=== PATIENT | female | born 1975 | race African-American/Black ===

== ENCOUNTER 2017-02-20 14:46 | Inpatient (IN) | payer OTHER ==
[2017-02-20] MEDS ORDERED: P-EPHED 60MG/TRIPROLIDI 2.5MG TABLET PO PRN (16:56)
[2017-02-20] MEDS ORDERED: MENTHOL/PHENOL 1 EACH UD MM PRN (16:56)
[2017-02-20] MEDS ORDERED: LOPERAMIDE HCL 2 MG CAPSULE PO PRN (16:56)
[2017-02-20] MEDS ORDERED: IBUPROFEN 400 MG TABLET (FP) PO PRN (16:56)
[2017-02-20] MEDS ORDERED: MAGNESIUM CITRATE 300 ML BOTTLE PO PRN (16:56)
[2017-02-20] MEDS ORDERED: ACETAMINOPHEN 325 MG TABLET (FP) PO PRN (16:56)
[2017-02-20] MEDS ORDERED: MAG HYDROX/AL HYDROX/SIMETH 30 ML UNIT-DOSE CUP PO PRN (16:56)
[2017-02-20] MEDS ORDERED: MAGNESIUM HYDROX 2400MG/30ML ORAL SUSPENSION 30 ML CUP PO PRN (16:56)
[2017-02-20] MEDS ORDERED: guaiFENesin/D-METHORPHAN HB 10 ML UNIT-DOSE CUPS PO PRN (16:56)
[2017-02-20] MEDS ORDERED: hydrOXYzine PAMOATE 50 MG CAPSULE (FP) PO PRN (16:56)
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
[2017-02-20 17:01] VITALS: BMI 19.7
[2017-02-20] MEDS ORDERED: METHADONE HCL 10 MG TABLET (FOR DETOX USE ONLY) PO ONE ×2 (18:00→23:00)
[2017-02-20] MEDS ORDERED: chlordiazePOXIDE HCL 25 MG CAPSULE PO ONE (18:00)
[2017-02-20] MEDS: NICOTINE 21 MG/24 HOURS TOPICAL PATCH TD SCH (18:05)
[2017-02-20] MEDS: BACITRACIN 0.9 GM PACKET TP SCH (19:29)
[2017-02-20] MEDS: chlordiazePOXIDE HCL 25 MG CAPSULE PO PRN (19:34)
[2017-02-20] MEDS: cloNIDine HCL 0.1 MG TABLET PO SCH (22:15)
[2017-02-20] MEDS: THIAMINE HCL 100 MG TABLET (FP) PO SCH (22:15)
[2017-02-20] MEDS: chlordiazePOXIDE HCL 25 MG CAPSULE PO SCH (22:16)
[2017-02-20] MEDS: diphenhydrAMINE HCL 50 MG CAPSULE PO PRN (23:55)
[2017-02-21] MEDS: chlordiazePOXIDE HCL 25 MG CAPSULE PO PRN (03:10)
[2017-02-21] MEDS: chlordiazePOXIDE HCL 25 MG CAPSULE PO SCH ×4 (05:29→22:25)
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
[2017-02-21] MEDS ORDERED: CYCLOBENZAPRINE HCL 10 MG TABLET (FP) PO PRN (09:33)
[2017-02-21] MEDS ORDERED: CYCLOBENZAPRINE HCL 10 MG TABLET (FP) PO ONE (09:47)
[2017-02-21] MEDS ORDERED: METHADONE HCL 10 MG TABLET (FOR DETOX USE ONLY) PO SCH (10:00)
[2017-02-21] MEDS: ESCITALOPRAM OXALATE 20 MG TABLET (FP) PO SCH (10:03)
[2017-02-21] MEDS: PRENATAL VITAMINS W/ FOLIC ACID TABLET (FP) PO SCH (10:03)
[2017-02-21] MEDS: BACITRACIN 0.9 GM PACKET TP SCH (10:03)
[2017-02-21] MEDS: cloNIDine HCL 0.1 MG TABLET PO SCH ×2 (10:03→22:25)
[2017-02-21 10:10] LABS: MCH 21.3 pg (25.7-33.7); MCHC 30.6 g/dl (32.0-36.0); MEAN CELL VOLUME 69.4 fl (80-96); MEAN PLT VOLUME 9.9 fl (7.5-11.1); PLATELET COUNT 294 K/MM3 (134-434); RDW 19.9 % (11.6-15.6); WHITE BLOOD COUNT 11.5 K/mm3 (4.0-10.0)
[2017-02-21] MEDS: NICOTINE 21 MG/24 HOURS TOPICAL PATCH TD SCH (10:21)
[2017-02-21 10:33] LABS: ALBUMIN 3.6 g/dl (3.4-5.0); ALK PHOS 89 U/L (45-117); ANION GAP 8 (8-16); BILIRUBIN,TOTAL 0.4 mg/dL (0.2-1.0); CALCIUM 9.4 mg/dL (8.5-10.1); CO2 26 mmol/L (21-32); CREATININE 0.7 mg/dL (0.55-1.02); GLUCOSE,RANDOM 98 mg/dL (74-106); SGOT/AST 21 U/L (15-37); SGPT/ALT 26 U/L (12-78); TOT PROT 8.6 g/dl (6.4-8.2)
--- NOTE | 2017-02-21 10:34 | EKG ---
Test Reason : Blood Pressure : / mmHG Vent. Rate : 071 BPM Atrial Rate : 071 BPM P-R Int : 158 ms QRS Dur : 074 ms QT Int : 416 ms P-R-T Axes : 066 066 044 degrees QTc Int : 452 ms SINUS RHYTHM WITH MARKED SINUS ARRHYTHMIA OTHERWISE NORMAL ECG NO PREVIOUS ECGS AVAILABLE Confirmed by ARACELIS GRANT MD ([id number]) on 02/21/2017 10:34:21 AM Referred By: Confirmed By:ARACELIS GRANT MD
--- NOTE | 2017-02-21 10:40 | PN ---
S CIWA - CIWA Score Nausea/Vomitin Muscle Tremors: 3 Anxiety: 3 Agitation: 3 Paroxysmal Sweats: 2 Orientation: 0-Oriented Tacttile Disturbances: 1-Very Mild Itch/Numbness Auditory Disturbances: 1-Very Mild Visual Disturbances: 1-Very Mild Sensitivity Headache: 2-Mild CIWA-Ar Total Score: 19 BHS COWS - Scale Resting Pulse: 1= [place] 81-100 Sweatin= Chills/Flushing Restless Observation: 3= Extraneous Movement Pupil Size: 1= Pupils >than Normal Bone or Joint Aches: 2= Severe Diffuse Aches Runny Nose/ Eye Tearin= Runny Nose/Eyes GI Upset > 30mins: 3= Vomiting/Diarrhea Tremor Observation of Outstretched Hands: 2= Slight Tremor Visible Yawning Observation: 1= 1-2x During Session Anxiety or Irritability: 2=Irritable/Anxious Goose Flesh Skin: 0=Smooth Skin COWS Score: 18 S Progress Note (SOAP) Subjective: alert,irritable,anxious,interrupted sleep,tremor,pain in the body and back, Objective: 02/21/17 10:43 Vital Signs Temperature 97.7 F 02/21/17 09:27 Pulse Rate 94 H 02/21/17 09:27 Respiratory Rate 20 02/21/17 09:27 Blood Pressure 139/92 02/21/17 09:27 O2 Sat by Pulse Oximetry (%) ekg nsr with sinus arrhythmia no chest pain,no sob,no dizziness 02/21/17 10:44 Laboratory Last Values WBC 11.5 K/mm3 (4.0-10.0) H 02/21/17 07:00 RBC 5.62 M/mm3 (3.60-5.2) H 02/21/17 07:00 Hgb 12.0 GM/dL (10.7-15.3) 02/21/17 07:00 Hct 39.0 % (32.4-45.2) 02/21/17 07:00 MCV 69.4 fl (80-96) L 02/21/17 07:00 MCH 21.3 pg (25.7-33.7) L 02/21/17 07:00 MCHC 30.6 g/dl (32.0-36.0) L 02/21/17 07:00 RDW 19.9 % (11.6-15.6) H 02/21/17 07:00 Plt Count 294 K/MM3 (134-434) 02/21/17 07:00 MPV 9.9 fl (7.5-11.1) 02/21/17 07:00 Sodium 138 mmol/L (136-145) 02/21/17 07:00 Potassium 3.6 mmol/L (3.5-5.1) 02/21/17 07:00 Chloride 104 mmol/L (98-107) 02/21/17 07:00 Carbon Dioxide 26 mmol/L (21-32) 02/21/17 07:00 Anion Gap 8 (8-16) 02/21/17 07:00 BUN 9 mg/dL (7-18) 02/21/17 07:00 Creatinine 0.7 mg/dL (0.55-1.02) 02/21/17 07:00 Creat Clearance w eGFR > 60 (>60) 02/21/17 07:00 Random Glucose 98 mg/dL (74-106) 02/21/17 07:00 Calcium 9.4 mg/dL (8.5-10.1) 02/21/17 07:00 Total Bilirubin 0.4 mg/dL (0.2-1.0) 02/21/17 07:00 AST 21 U/L (15-37) 02/21/17 07:00 ALT 26 U/L (12-78) 02/21/17 07:00 Alkaline Phosphatase 89 U/L (45-117) 02/21/17 07:00 Total Protein 8.6 g/dl (6.4-8.2) H 02/21/17 07:00 Albumin 3.6 g/dl (3.4-5.0) 02/21/17 07:00 02/21/17 10:45 labs pending Assessment: 02/21/17 10:45 withdrawal symptom Plan: continue detox,encourage oral fluid
[2017-02-21 11:06] LABS: ANISOCYTOSIS 1+; HYPOCHROMIA 1+; MICROCYTOSIS 1+; PLATELET ESTIMATE ADEQUATE (NORMAL); SICKLE CELL SCREEN NEGATIVE (NEGATIVE); TARGET CELLS FEW
[2017-02-21 12:20] LABS: HIV 1 & 2 AB NEGATIVE; HIV 1 AGp24 NEGATIVE
[2017-02-21] MEDS: THIAMINE HCL 100 MG TABLET (FP) PO SCH (22:25)
[2017-02-21] MEDS: QUEtiapine FUMARATE 300 MG TABLET PO SCH (22:25)
[2017-02-21] MEDS: diphenhydrAMINE HCL 50 MG CAPSULE PO PRN (22:26)
[2017-02-22] MEDS: chlordiazePOXIDE HCL 25 MG CAPSULE PO PRN (02:33)
[2017-02-22] MEDS: chlordiazePOXIDE HCL 25 MG CAPSULE PO SCH ×2 (06:24→10:05)
[2017-02-22] MEDS: METHADONE HCL 5 MG TABLET (FOR DETOX USE ONLY) PO SCH (10:05)
[2017-02-22] MEDS: ESCITALOPRAM OXALATE 20 MG TABLET (FP) PO SCH (10:05)
[2017-02-22] MEDS: BACITRACIN 0.9 GM PACKET TP SCH (10:05)
[2017-02-22] MEDS: cloNIDine HCL 0.1 MG TABLET PO SCH ×2 (10:05→23:53)
[2017-02-22] MEDS: PRENATAL VITAMINS W/ FOLIC ACID TABLET (FP) PO SCH (10:05)
[2017-02-22] MEDS: NICOTINE 21 MG/24 HOURS TOPICAL PATCH TD SCH (10:06)
[2017-02-22] MEDS ORDERED: IBUPROFEN 400 MG TABLET (FP) PO PRN (10:23)
--- NOTE | 2017-02-22 10:30 | PN ---
S CIWA - CIWA Score Nausea/Vomitin Muscle Tremors: 3 Anxiety: 3 Agitation: 3 Paroxysmal Sweats: 1-Minimal Palms Moist Orientation: 0-Oriented Tacttile Disturbances: 1-Very Mild Itch/Numbness Auditory Disturbances: 1-Very Mild Visual Disturbances: 1-Very Mild Sensitivity Headache: 2-Mild CIWA-Ar Total Score: 18 BHS COWS - Scale Resting Pulse: 1= [place] 81-100 Sweatin= Chills/Flushing Restless Observation: 3= Extraneous Movement Pupil Size: 1= Pupils >than Normal Bone or Joint Aches: 2= Severe Diffuse Aches Runny Nose/ Eye Tearin= Runny Nose/Eyes GI Upset > 30mins: 2= Nausea/Diarrhea Tremor Observation of Outstretched Hands: 2= Slight Tremor Visible Yawning Observation: 1= 1-2x During Session Anxiety or Irritability: 2=Irritable/Anxious Goose Flesh Skin: 0=Smooth Skin COWS Score: 17 S Progress Note (SOAP) Subjective: alert,irritable,anxious,pain in the body,joint,interrupted sleep Objective: 02/22/17 12:12 Vital Signs Temperature 97.0 F L 02/22/17 09:43 Pulse Rate 90 02/22/17 09:43 Respiratory Rate 16 02/22/17 09:43 Blood Pressure 102/65 02/22/17 09:43 O2 Sat by Pulse Oximetry (%) Assessment: 02/22/17 12:12 withdrawal symptom Laboratory Last Values WBC 11.5 K/mm3 (4.0-10.0) H 02/21/17 07:00 RBC 5.62 M/mm3 (3.60-5.2) H 02/21/17 07:00 Hgb 12.0 GM/dL (10.7-15.3) 02/21/17 07:00 Hct 39.0 % (32.4-45.2) 02/21/17 07:00 MCV 69.4 fl (80-96) L 02/21/17 07:00 MCH 21.3 pg (25.7-33.7) L 02/21/17 07:00 MCHC 30.6 g/dl (32.0-36.0) L 02/21/17 07:00 RDW 19.9 % (11.6-15.6) H 02/21/17 07:00 Plt Count 294 K/MM3 (134-434) 02/21/17 07:00 MPV 9.9 fl (7.5-11.1) 02/21/17 07:00 Hypochromia 1+ 02/21/17 07:00 Platelet Estimate Adequate (NORMAL) 02/21/17 07:00 Platelet Comment No clumping noted 02/21/17 07:00 Anisocytosis 1+ 02/21/17 07:00 Microcytosis 1+ 02/21/17 07:00 Target Cells Few 02/21/17 07:00 Sickle Cell Screen Negative (NEGATIVE) 02/21/17 07:00 Sodium 138 mmol/L (136-145) 02/21/17 07:00 Potassium 3.6 mmol/L (3.5-5.1) 02/21/17 07:00 Chloride 104 mmol/L (98-107) 02/21/17 07:00 Carbon Dioxide 26 mmol/L (21-32) 02/21/17 07:00 Anion Gap 8 (8-16) 02/21/17 07:00 BUN 9 mg/dL (7-18) 02/21/17 07:00 Creatinine 0.7 mg/dL (0.55-1.02) 02/21/17 07:00 Creat Clearance w eGFR > 60 (>60) 02/21/17 07:00 Random Glucose 98 mg/dL (74-106) 02/21/17 07:00 Calcium 9.4 mg/dL (8.5-10.1) 02/21/17 07:00 Total Bilirubin 0.4 mg/dL (0.2-1.0) 02/21/17 07:00 AST 21 U/L (15-37) 02/21/17 07:00 ALT 26 U/L (12-78) 02/21/17 07:00 Alkaline Phosphatase 89 U/L (45-117) 02/21/17 07:00 Total Protein 8.6 g/dl (6.4-8.2) H 02/21/17 07:00 Albumin 3.6 g/dl (3.4-5.0) 02/21/17 07:00 RPR Titer Nonreactive (NONREACTIVE) 02/21/17 07:00 Hepatitis C Antibody <0.1 s/co ratio (0.0-0.9) 02/20/17 07:00 HIV 1&2 Antibody Screen Negative 02/21/17 07:00 HIV P24 Antigen Negative 02/21/17 07:00 Plan: continue detox,regimen changed to methadone and valium instead of methadone and librium
[2017-02-22] MEDS ORDERED: diazePAM 5 MG TABLET PO ONE (10:37)
[2017-02-22] MEDS: diazePAM 5 MG TABLET PO SCH ×2 (15:11→23:55)
[2017-02-22] MEDS: diazePAM 5 MG TABLET PO PRN (16:36)
[2017-02-22] MEDS ORDERED: chlordiazePOXIDE 5 MG CAPSULE PO SCH (23:00)
[2017-02-22] MEDS: QUEtiapine FUMARATE 300 MG TABLET PO SCH (23:55)
[2017-02-22] MEDS: THIAMINE HCL 100 MG TABLET (FP) PO SCH (23:55)
[2017-02-23] MEDS: diazePAM 5 MG TABLET PO PRN ×3 (01:03→20:03)
[2017-02-23] MEDS: diazePAM 5 MG TABLET PO SCH ×3 (05:12→22:12)
[2017-02-23] MEDS: NICOTINE POLACRILEX 4 MG GUM BC PRN ×3 (06:11→20:53)
[2017-02-23] MEDS ORDERED: ONDANSETRON *ODT* 4 MG TABLET SL PRN (08:31)
--- NOTE | 2017-02-23 08:35 | PN ---
BHS Progress Note (SOAP) Subjective: patient is c/o withdrawal sx, bodyaches, sweats, vomiting anxiety, tremors, heqadache Objective: 02/23/17 08:34 Vital Signs - 24 hr 02/22/17 02/22/17 02/22/17 09:43 16:59 21:19 Temperature 97.0 F L 98.6 F 97.9 F Pulse Rate 90 69 80 Respiratory 16 16 20 Rate Blood Pressure 102/65 92/67 100/60 02/23/17 02/23/17 02/23/17 00:30 03:30 06:26 Temperature 96.6 F L Pulse Rate 62 Respiratory 18 18 16 Rate Blood Pressure 102/56 Laboratory Tests 02/20/17 02/21/17 02/21/17 07:00 07:00 07:00 WBC 11.5 H RBC 5.62 H Hgb 12.0 Hct 39.0 MCV 69.4 L MCH 21.3 L MCHC 30.6 L RDW 19.9 H Plt Count 294 MPV 9.9 Hypochromia 1+ Platelet Estimate Adequate Platelet Comment No clumping noted Anisocytosis 1+ Microcytosis 1+ Target Cells Few Sickle Cell Screen Negative Sodium Potassium Chloride Carbon Dioxide Anion Gap BUN Creatinine Creat Clearance w eGFR Random Glucose Calcium Total Bilirubin AST ALT Alkaline Phosphatase Total Protein Albumin RPR Titer Hepatitis C Antibody <0.1 HIV 1&2 Antibody Screen Negative HIV P24 Antigen Negative 02/21/17 02/21/17 07:00 07:00 WBC RBC Hgb Hct MCV MCH MCHC RDW Plt Count MPV Hypochromia Platelet Estimate Platelet Comment Anisocytosis Microcytosis Target Cells Sickle Cell Screen Sodium 138 Potassium 3.6 Chloride 104 Carbon Dioxide 26 Anion Gap 8 BUN 9 Creatinine 0.7 Creat Clearance w eGFR > 60 Random Glucose 98 Calcium 9.4 Total Bilirubin 0.4 AST 21 ALT 26 Alkaline Phosphatase 89 Total Protein 8.6 H Albumin 3.6 RPR Titer Nonreactive Hepatitis C Antibody HIV 1&2 Antibody Screen HIV P24 Antigen Assessment: 02/23/17 08:34 withdrawal sx, microsytosis Plan: cont detox, ensure , iron supplements, encourage ambulation, fluids
[2017-02-23] MEDS ORDERED: ONDANSETRON *ODT* 4 MG TABLET SL ONE (08:40)
[2017-02-23] MEDS: ESCITALOPRAM OXALATE 20 MG TABLET (FP) PO SCH (10:07)
[2017-02-23] MEDS: NAPROXEN 500 MG TABLET (FP) PO SCH ×2 (10:07→22:08)
[2017-02-23] MEDS: METHADONE HCL 5 MG TABLET (FOR DETOX USE ONLY) PO SCH (10:08)
[2017-02-23] MEDS: PANTOPRAZOLE 40 MG TABLET (FP) PO SCH (10:08)
[2017-02-23] MEDS: BACITRACIN 0.9 GM PACKET TP SCH (10:08)
[2017-02-23] MEDS: PRENATAL VITAMINS W/ FOLIC ACID TABLET (FP) PO SCH (10:08)
[2017-02-23] MEDS: NICOTINE 21 MG/24 HOURS TOPICAL PATCH TD SCH (10:09)
[2017-02-23] MEDS: cloNIDine HCL 0.1 MG TABLET PO SCH ×2 (10:12→23:35)
[2017-02-23] MEDS: GABAPENTIN 100 MG CAPSULE (FP) PO SCH ×2 (14:37→22:08)
[2017-02-23] MEDS: hydrOXYzine PAMOATE 50 MG CAPSULE (FP) PO SCH ×2 (14:38→23:35)
[2017-02-23 17:00] LABS: URINE APPEARANCE CLEAR; URINE BILIRUBIN NEGATIVE (NEGATIVE); URINE BLOOD NEGATIVE (NEGATIVE); URINE COLOR LT. YELLOW; URINE GLUCOSE (UA) NEGATIVE (NEGATIVE); URINE KETONE NEGATIVE (NEGATIVE); URINE LEUK ESTERASE NEGATIVE (NEGATIVE); URINE NITRITE NEGATIVE (NEGATIVE); URINE PROTEIN NEGATIVE (NEGATIVE); URINE UROBILINOGEN 0.2 mg/dL (0.2-1.0)
[2017-02-23] MEDS ORDERED: ZOLPIDEM TARTRATE 10 MG TABLET (PARK CARE ONLY) PO PRN (22:00)
[2017-02-23] MEDS: THIAMINE HCL 100 MG TABLET (FP) PO SCH (22:08)
[2017-02-23] MEDS: QUEtiapine FUMARATE 300 MG TABLET PO SCH (22:09)
[2017-02-23] MEDS ORDERED: chlordiazePOXIDE HCL 10 MG CAPSULE PO SCH (23:00)
[2017-02-24] MEDS: diazePAM 5 MG TABLET PO PRN ×3 (01:08→18:33)
[2017-02-24] MEDS: hydrOXYzine PAMOATE 50 MG CAPSULE (FP) PO SCH ×3 (07:28→22:10)
[2017-02-24] MEDS: GABAPENTIN 100 MG CAPSULE (FP) PO SCH ×3 (07:28→22:10)
[2017-02-24] MEDS ORDERED: METHADONE HCL 10 MG TABLET (FOR DETOX USE ONLY) PO SCH (10:00)
[2017-02-24] MEDS: PRENATAL VITAMINS W/ FOLIC ACID TABLET (FP) PO SCH (10:45)
[2017-02-24] MEDS: NAPROXEN 500 MG TABLET (FP) PO SCH ×2 (10:45→22:11)
[2017-02-24] MEDS: ESCITALOPRAM OXALATE 20 MG TABLET (FP) PO SCH (10:45)
[2017-02-24] MEDS: PANTOPRAZOLE 40 MG TABLET (FP) PO SCH (10:45)
[2017-02-24] MEDS: NICOTINE 21 MG/24 HOURS TOPICAL PATCH TD SCH (10:45)
[2017-02-24] MEDS: diazePAM 5 MG TABLET PO SCH ×2 (10:46→22:10)
[2017-02-24] MEDS: cloNIDine HCL 0.1 MG TABLET PO SCH ×2 (10:47→22:10)
[2017-02-24] MEDS: BACITRACIN 0.9 GM PACKET TP SCH (10:47)
--- NOTE | 2017-02-24 12:09 | PN ---
BHS Progress Note (SOAP) Subjective: alert,irritable,anxious,interrupted sleep,pain in the body Objective: 02/24/17 12:08 Vital Signs Temperature 97.5 F L 02/24/17 10:53 Pulse Rate 75 02/24/17 10:53 Respiratory Rate 16 02/24/17 10:53 Blood Pressure 111/65 02/24/17 10:53 O2 Sat by Pulse Oximetry (%) Assessment: 02/24/17 12:09 withdrawal symptom Plan: continue detox
[2017-02-24] MEDS: QUEtiapine FUMARATE 300 MG TABLET PO SCH (22:10)
[2017-02-24] MEDS: THIAMINE HCL 100 MG TABLET (FP) PO SCH (22:10)
[2017-02-25] MEDS ORDERED: METHADONE HCL 5 MG TABLET (FOR DETOX USE ONLY) PO SCH (06:00)
[2017-02-25] MEDS: hydrOXYzine PAMOATE 50 MG CAPSULE (FP) PO SCH ×3 (06:29→22:08)
[2017-02-25] MEDS: GABAPENTIN 100 MG CAPSULE (FP) PO SCH ×3 (06:30→22:08)
--- NOTE | 2017-02-25 08:37 | PN ---
S Progress Note (SOAP) Subjective: ALERT,IRRITABLE,ANXIOUS,INTERRUPTED SLEEP Objective: 02/25/17 08:36 Vital Signs Temperature 97.3 F L 02/25/17 06:00 Pulse Rate 74 02/25/17 06:00 Respiratory Rate 18 02/25/17 06:00 Blood Pressure 107/61 02/25/17 06:00 O2 Sat by Pulse Oximetry (%) Assessment: 02/25/17 08:36 WITHDRAWAL SYMPTOM Plan: CONTINUE DETOX
[2017-02-25] MEDS: BACITRACIN 0.9 GM PACKET TP SCH (10:08)
[2017-02-25] MEDS: cloNIDine HCL 0.1 MG TABLET PO SCH ×2 (10:08→22:08)
[2017-02-25] MEDS: ESCITALOPRAM OXALATE 20 MG TABLET (FP) PO SCH (10:09)
[2017-02-25] MEDS: diazePAM 5 MG TABLET PO SCH ×2 (10:09→22:08)
[2017-02-25] MEDS: PANTOPRAZOLE 40 MG TABLET (FP) PO SCH (10:09)
[2017-02-25] MEDS: NAPROXEN 500 MG TABLET (FP) PO SCH ×2 (10:09→22:08)
[2017-02-25] MEDS: NICOTINE 21 MG/24 HOURS TOPICAL PATCH TD SCH (10:09)
[2017-02-25] MEDS: PRENATAL VITAMINS W/ FOLIC ACID TABLET (FP) PO SCH (10:09)
[2017-02-25] MEDS: NICOTINE POLACRILEX 4 MG GUM BC PRN ×2 (11:05→19:43)
[2017-02-25] MEDS: THIAMINE HCL 100 MG TABLET (FP) PO SCH (22:08)
[2017-02-25] MEDS: QUEtiapine FUMARATE 300 MG TABLET PO SCH (22:09)
[2017-02-26] MEDS: hydrOXYzine PAMOATE 50 MG CAPSULE (FP) PO SCH (06:54)
[2017-02-26] MEDS: GABAPENTIN 100 MG CAPSULE (FP) PO SCH (06:54)
[2017-02-26] MEDS ORDERED: diazePAM 5 MG TABLET PO SCH (10:00)
[2017-02-26] MEDS: BACITRACIN 0.9 GM PACKET TP SCH (10:05)
[2017-02-26] MEDS: ESCITALOPRAM OXALATE 20 MG TABLET (FP) PO SCH (10:05)
[2017-02-26] MEDS: cloNIDine HCL 0.1 MG TABLET PO SCH (10:05)
[2017-02-26] MEDS: NAPROXEN 500 MG TABLET (FP) PO SCH (10:05)
[2017-02-26] MEDS: PANTOPRAZOLE 40 MG TABLET (FP) PO SCH (10:05)
[2017-02-26] MEDS: PRENATAL VITAMINS W/ FOLIC ACID TABLET (FP) PO SCH (10:05)
[2017-02-26] MEDS: NICOTINE 21 MG/24 HOURS TOPICAL PATCH TD SCH (10:06)
[2017-02-26 10:42] VITALS: BP 127/77; PULSE 82; TEMP 97.9
--- NOTE | 2017-02-26 10:54 | DS ---
[facility] Detox Discharge Summary Admission Date: 02/20/17 Discharge Date: 02/26/17 - History Present History: Alcohol Dependence, Opioid Dependence, Sedative Dependence Additional Comments: PATIENT DECLINED TO GO TO REHAB,FOLLOW UP WITH AFTER CARE PROGRAM ARRANGEMENT Pertinent Past History: [employer]LC[employer]EARMS SCHIZOPHRENIA NICOTINE DEPENDENCE - Physical Exam Results Vital Signs: Vital Signs Temperature 97.9 F 02/26/17 10:36 Pulse Rate 82 02/26/17 10:36 Respiratory Rate 18 02/26/17 10:36 Blood Pressure 127/77 02/26/17 10:36 O2 Sat by Pulse Oximetry (%) Pertinent Admission Physical Exam Findings: WITHDRAWAL SYMPTOM - Treatment Hospital Course: Detox Protocol Followed, Detoxed Safely, Responded well, Discharged Condition Good, Rehab Referral Accepted Patient has Accepted a Rehab Referral to: [facility] - Medication Discharge Medications: Ambulatory Orders Escitalopram Oxalate [Lexapro -] 20 mg PO DAILY 02/20/17 Escitalopram Oxalate [Lexapro -] 20 mg PO DAILY #30 tablet 02/21/17 Quetiapine Fumarate [Seroquel -] 300 mg PO HS #30 tab 02/21/17 - Diagnosis (1) Arm ulcer Current Visit: Yes Status: Acute (2) Cocaine abuse Current Visit: Yes Status: Acute (3) Alcohol dependence with uncomplicated withdrawal Current Visit: Yes Status: Chronic (4) Nicotine dependence Current Visit: Yes Status: Chronic (5) Opioid dependence with withdrawal Current Visit: Yes Status: Chronic (6) Schizoaffective disorder Current Visit: Yes Status: Chronic (7) Sedative, hypnotic or anxiolytic dependence with withdrawal, uncomplicated Current Visit: Yes Status: Chronic (8) Self-harming behavior Current Visit: Yes Status: Chronic - AMA Did Patient Leave Against Medical Advice: No
== END 2017-02-26 11:20 | disposition home or self-care (01) | DRG 897 ==
LOC: YASAS 14:46 → Y6N 17:13
PROVIDERS: ADMIT Internal Medicine; ATTEND Internal Medicine
PROC: HZ2ZZZZ Detoxification Services for Substance Abuse Treatment (ICD-10-PCS; principal; 2017-02-20)
DX: F11.23 Opioid dependence with withdrawal (principal); F13.230 Sedative, hypnotic or anxiolytic dependence with withdrawal, uncomplicated; F10.230 Alcohol dependence with withdrawal, uncomplicated; F14.10 Cocaine abuse, uncomplicated; F25.9 Schizoaffective disorder, unspecified; L98.499 Non-pressure chronic ulcer of skin of other sites with unspecified severity; R71.8 Other abnormality of red blood cells; I49.9 Cardiac arrhythmia, unspecified; Z91.5 Personal history of self-harm
CPT/HCPCS: 36415; 80053; 81003; 85027; 85660; 86593; 86803; 87389; 93005; 93010

== ENCOUNTER 2017-04-16 11:11 | Inpatient (IN) | payer OTHER ==
[2017-04-16 11:57] VITALS: BMI 24.7
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
[2017-04-16] MEDS ORDERED: P-EPHED 60MG/TRIPROLIDI 2.5MG TABLET PO PRN (14:41)
[2017-04-16] MEDS ORDERED: IBUPROFEN 400 MG TABLET (FP) PO PRN (14:41)
[2017-04-16] MEDS ORDERED: MENTHOL/PHENOL 1 EACH UD MM PRN (14:41)
[2017-04-16] MEDS ORDERED: MAG HYDROX/AL HYDROX/SIMETH 30 ML UNIT-DOSE CUP PO PRN (14:41)
[2017-04-16] MEDS ORDERED: guaiFENesin/D-METHORPHAN HB 10 ML UNIT-DOSE CUPS PO PRN (14:41)
[2017-04-16] MEDS ORDERED: MAGNESIUM HYDROX 2400MG/30ML ORAL SUSPENSION 30 ML CUP PO PRN (14:41)
[2017-04-16] MEDS ORDERED: LOPERAMIDE HCL 2 MG CAPSULE PO PRN (14:41)
[2017-04-16 17:28] LABS: URINE APPEARANCE CLEAR; URINE BILIRUBIN NEGATIVE (NEGATIVE); URINE BLOOD NEGATIVE (NEGATIVE); URINE COLOR LTYELLOW; URINE GLUCOSE (UA) NEGATIVE (NEGATIVE); URINE KETONE NEGATIVE (NEGATIVE); URINE NITRITE NEGATIVE (NEGATIVE); URINE PROTEIN NEGATIVE (NEGATIVE); URINE UROBILINOGEN NEGATIVE mg/dL (0.2-1.0)
[2017-04-16] MEDS: SILVER SULFADIAZINE 1% TOP CREAM 50 GM JAR TP SCH ×2 (18:06→22:07)
[2017-04-16 19:27] LABS: URINE LEUK ESTERASE Negative (NEGATIVE)
[2017-04-16] MEDS: THIAMINE HCL 100 MG TABLET (FP) PO SCH (22:07)
[2017-04-16] MEDS: traZODone HCL 50 MG TABLET (FP) PO SCH (23:43)
[2017-04-16] MEDS: QUEtiapine FUMARATE 100 MG TABLET (FP) PO SCH (23:43)
[2017-04-17] MEDS ORDERED: traZODone HCL 50 MG TABLET (FP) PO ONE (00:44)
[2017-04-17] MEDS ORDERED: QUEtiapine FUMARATE 100 MG TABLET (FP) PO ONE (00:45)
[2017-04-17] MEDS ORDERED: METHADONE HCL 10 MG TABLET PO SCH (08:15)
[2017-04-17] MEDS ORDERED: METHADONE HCL 5 MG TABLET ONE (08:26)
[2017-04-17] MEDS ORDERED: METHADONE HCL 40 MG DISPERSABLE TABLET ONE (08:27)
[2017-04-17] MEDS: METHADONE 80 MG, METHADONE 5 MG PO SCH (08:29)
[2017-04-17] MEDS: PRENATAL VITAMINS W/ FOLIC ACID TABLET (FP) PO SCH (09:35)
[2017-04-17] MEDS: SILVER SULFADIAZINE 1% TOP CREAM 50 GM JAR TP SCH ×2 (09:35→21:11)
[2017-04-17 09:55] LABS: MCH 21.3 pg (25.7-33.7); MCHC 30.2 g/dl (32.0-36.0); MEAN CELL VOLUME 70.3 fl (80-96); MEAN PLT VOLUME 10.9 fl (7.5-11.1); PLATELET COUNT 198 K/MM3 (134-434); RDW 18.4 % (11.6-15.6); WHITE BLOOD COUNT 8.3 K/mm3 (4.0-10.0)
[2017-04-17 10:38] LABS: ALBUMIN 2.9 g/dl (3.4-5.0); ALK PHOS 70 U/L (45-117); ANION GAP 5 (8-16); BILIRUBIN,TOTAL 0.4 mg/dL (0.2-1.0); CALCIUM 8.1 mg/dL (8.5-10.1); CO2 29 mmol/L (21-32); CREATININE 0.9 mg/dL (0.55-1.02); GLUCOSE,RANDOM 178 mg/dL (74-106); SGOT/AST 12 U/L (15-37); SGPT/ALT 16 U/L (12-78); TOT PROT 6.8 g/dl (6.4-8.2)
--- NOTE | 2017-04-17 12:32 | PN ---
[facility] Progress Note (SOAP) Subjective: reviewed bloodwork with mitesh, significaant microcytic anemia noted, patient reprots heavy periods otherwise asymptomatic, was aware of anemia Objective: 04/17/17 12:31 Vital Signs - 8 hr 04/17/17 06:39 Temperature 98.8 F Pulse Rate 58 L Respiratory 18 Rate Blood Pressure 131/79 Laboratory Tests 04/16/17 04/17/17 04/17/17 15:30 07:30 07:30 WBC 8.3 RBC 4.62 Hgb 9.8 L D Hct 32.5 D MCV 70.3 L MCH 21.3 L MCHC 30.2 L RDW 18.4 H Plt Count 198 D MPV 10.9 D Sodium 138 Potassium 3.8 Chloride 104 Carbon Dioxide 29 Anion Gap 5 L BUN 18 D Creatinine 0.9 D Creat Clearance w eGFR > 60 Random Glucose 178 H D Calcium 8.1 L Total Bilirubin 0.4 AST 12 L D ALT 16 D Alkaline Phosphatase 70 D Total Protein 6.8 D Albumin 2.9 L Urine Color Ltyellow Urine Appearance Clear Urine pH 6.0 Ur Specific [place] 1.014 Urine Protein Negative Urine Glucose (UA) Negative Urine Ketones Negative Urine Blood Negative Urine Nitrite Negative Urine Bilirubin Negative Urine Urobilinogen Negative Ur Leukocyte Esterase Negative RPR Titer 04/17/17 07:30 WBC RBC Hgb Hct MCV MCH MCHC RDW Plt Count MPV Sodium Potassium Chloride Carbon Dioxide Anion Gap BUN Creatinine Creat Clearance w eGFR Random Glucose Calcium Total Bilirubin AST ALT Alkaline Phosphatase Total Protein Albumin Urine Color Urine Appearance Urine pH Ur Specific [place] Urine Protein Urine Glucose (UA) Urine Ketones Urine Blood Urine Nitrite Urine Bilirubin Urine Urobilinogen Ur Leukocyte Esterase RPR Titer Nonreactive Assessment: 04/17/17 12:31 microcytic anemia 2/2 menorrhagia Plan: iron tid with colace, patie taware and in agreement
[2017-04-17] MEDS: FERROUS SO4 325 MG TABLET (FP) PO SCH ×2 (13:11→18:38)
[2017-04-17] MEDS: traZODone HCL 50 MG TABLET (FP) PO SCH (21:10)
[2017-04-17] MEDS: QUEtiapine FUMARATE 100 MG TABLET (FP) PO SCH (21:10)
[2017-04-17] MEDS: DOCUSATE SODIUM 100 MG CAPSULE (FP) PO SCH (21:10)
[2017-04-17] MEDS: THIAMINE HCL 100 MG TABLET (FP) PO SCH (21:10)
[2017-04-18] MEDS ORDERED: METHADONE HCL 5 MG TABLET ONE (02:57)
[2017-04-18] MEDS ORDERED: METHADONE HCL 40 MG DISPERSABLE TABLET ONE (02:57)
[2017-04-18] MEDS: METHADONE 80 MG, METHADONE 5 MG PO SCH (06:17)
[2017-04-18] MEDS: ACETAMINOPHEN 325 MG TABLET (FP) PO PRN (06:18)
[2017-04-18] MEDS: FERROUS SO4 325 MG TABLET (FP) PO SCH ×3 (07:18→17:35)
[2017-04-18] MEDS ORDERED: PT OWN MED DRAWER 7, Y5N ONE (08:38)
[2017-04-18] MEDS: SILVER SULFADIAZINE 1% TOP CREAM 50 GM JAR TP SCH ×2 (10:13→21:16)
[2017-04-18] MEDS: PRENATAL VITAMINS W/ FOLIC ACID TABLET (FP) PO SCH (10:13)
--- NOTE | 2017-04-18 12:17 | EKG ---
Test Reason : Blood Pressure : / mmHG Vent. Rate : 071 BPM Atrial Rate : 071 BPM P-R Int : 172 ms QRS Dur : 074 ms QT Int : 430 ms P-R-T Axes : 048 040 010 degrees QTc Int : 467 ms NORMAL SINUS RHYTHM LOW VOLTAGE QRS CANNOT RULE OUT ANTERIOR INFARCT , AGE UNDETERMINED ABNORMAL ECG WHEN COMPARED WITH ECG OF 20-FEB-2017 16:47, NONSPECIFIC T WAVE ABNORMALITY NOW EVIDENT IN INFERIOR LEADS T WAVE AMPLITUDE HAS DECREASED IN ANTERIOR LEADS Confirmed by JUANITA SHOEMAKER, ARACELIS ([id number]) on 04/18/2017 12:17:19 PM Referred By: Confirmed By:ARACELIS GRANT MD
[2017-04-18] MEDS: MINERAL OIL/PETROLAT/WATER TOPICAL CREAM 113 GM JAR TP SCH ×2 (12:37→21:16)
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
[2017-04-18] MEDS: THIAMINE HCL 100 MG TABLET (FP) PO SCH (21:13)
[2017-04-18] MEDS: QUEtiapine FUMARATE 100 MG TABLET (FP) PO SCH (21:13)
[2017-04-18] MEDS: DOCUSATE SODIUM 100 MG CAPSULE (FP) PO SCH (21:13)
[2017-04-18] MEDS: SUVOREXANT 10 MG TABLET PO SCH (21:16)
[2017-04-19] MEDS ORDERED: METHADONE HCL 40 MG DISPERSABLE TABLET ONE (03:20)
[2017-04-19] MEDS ORDERED: METHADONE HCL 5 MG TABLET ONE (03:20)
[2017-04-19] MEDS: METHADONE 80 MG, METHADONE 5 MG PO SCH (06:06)
[2017-04-19] MEDS: FERROUS SO4 325 MG TABLET (FP) PO SCH ×3 (07:41→17:35)
[2017-04-19] MEDS ORDERED: PT OWN MED DRAWER 7, Y5N ONE ×2 (08:15→23:16)
[2017-04-19] MEDS: PRENATAL VITAMINS W/ FOLIC ACID TABLET (FP) PO SCH (09:53)
[2017-04-19] MEDS: MINERAL OIL/PETROLAT/WATER TOPICAL CREAM 113 GM JAR TP SCH ×2 (09:54→21:16)
[2017-04-19] MEDS: SILVER SULFADIAZINE 1% TOP CREAM 50 GM JAR TP SCH ×2 (09:54→21:17)
[2017-04-19] MEDS: MAGNESIUM CITRATE 300 ML BOTTLE PO PRN (14:07)
[2017-04-19] MEDS: NICOTINE 21 MG/24 HOURS TOPICAL PATCH TD SCH (17:40)
[2017-04-19] MEDS: DOCUSATE SODIUM 100 MG CAPSULE (FP) PO SCH (21:14)
[2017-04-19] MEDS: THIAMINE HCL 100 MG TABLET (FP) PO SCH (21:14)
[2017-04-19] MEDS: QUEtiapine FUMARATE 100 MG TABLET (FP) PO SCH (21:14)
[2017-04-19] MEDS: SUVOREXANT 10 MG TABLET PO SCH (21:15)
[2017-04-19] MEDS: NICOTINE POLACRILEX 4 MG GUM BUC PRN (21:17)
[2017-04-20] MEDS ORDERED: METHADONE HCL 40 MG DISPERSABLE TABLET ONE (05:44)
[2017-04-20] MEDS ORDERED: METHADONE HCL 5 MG TABLET ONE (05:44)
[2017-04-20] MEDS: METHADONE 80 MG, METHADONE 5 MG PO SCH (06:40)
[2017-04-20] MEDS: FERROUS SO4 325 MG TABLET (FP) PO SCH ×3 (07:11→17:35)
[2017-04-20] MEDS: PRENATAL VITAMINS W/ FOLIC ACID TABLET (FP) PO SCH (10:27)
[2017-04-20] MEDS: NICOTINE 21 MG/24 HOURS TOPICAL PATCH TD SCH (10:28)
[2017-04-20] MEDS: MINERAL OIL/PETROLAT/WATER TOPICAL CREAM 113 GM JAR TP SCH ×2 (10:28→21:15)
[2017-04-20] MEDS: SILVER SULFADIAZINE 1% TOP CREAM 50 GM JAR TP SCH ×2 (10:28→21:15)
[2017-04-20] MEDS: MAGNESIUM CITRATE 300 ML BOTTLE PO PRN (13:35)
[2017-04-20] MEDS ORDERED: PT OWN MED DRAWER 7, Y5N ONE (21:09)
[2017-04-20] MEDS: THIAMINE HCL 100 MG TABLET (FP) PO SCH (21:14)
[2017-04-20] MEDS: QUEtiapine FUMARATE 100 MG TABLET (FP) PO SCH (21:14)
[2017-04-20] MEDS: DOCUSATE SODIUM 100 MG CAPSULE (FP) PO SCH (21:15)
[2017-04-20] MEDS: SUVOREXANT 10 MG TABLET PO SCH (21:16)
[2017-04-21] MEDS ORDERED: METHADONE HCL 40 MG DISPERSABLE TABLET ONE (03:12)
[2017-04-21] MEDS ORDERED: METHADONE HCL 5 MG TABLET ONE (03:12)
[2017-04-21] MEDS: METHADONE 80 MG, METHADONE 5 MG PO SCH (06:48)
[2017-04-21] MEDS: FERROUS SO4 325 MG TABLET (FP) PO SCH ×3 (07:06→16:54)
[2017-04-21] MEDS: PRENATAL VITAMINS W/ FOLIC ACID TABLET (FP) PO SCH (09:27)
[2017-04-21] MEDS: NICOTINE 21 MG/24 HOURS TOPICAL PATCH TD SCH (09:28)
[2017-04-21] MEDS: MINERAL OIL/PETROLAT/WATER TOPICAL CREAM 113 GM JAR TP SCH ×2 (09:29→21:58)
[2017-04-21] MEDS ORDERED: PT OWN MED DRAWER 7, Y5N ONE (09:29)
[2017-04-21] MEDS: SILVER SULFADIAZINE 1% TOP CREAM 50 GM JAR TP SCH ×2 (09:30→21:58)
[2017-04-21] MEDS: NICOTINE POLACRILEX 4 MG GUM BUC PRN ×2 (09:30→16:55)
[2017-04-21] MEDS ORDERED: COLLOIDAL OATMEAL 1 BAR EACH TP PRN (11:32)
[2017-04-21] MEDS: DOCUSATE SODIUM 100 MG CAPSULE (FP) PO SCH (21:57)
[2017-04-21] MEDS: QUEtiapine FUMARATE 100 MG TABLET (FP) PO SCH (21:57)
[2017-04-21] MEDS: THIAMINE HCL 100 MG TABLET (FP) PO SCH (21:57)
[2017-04-21] MEDS: SUVOREXANT 10 MG TABLET PO SCH (21:58)
[2017-04-22] MEDS ORDERED: METHADONE HCL 40 MG DISPERSABLE TABLET ONE (03:05)
[2017-04-22] MEDS ORDERED: METHADONE HCL 5 MG TABLET ONE (03:05)
[2017-04-22] MEDS: METHADONE 80 MG, METHADONE 5 MG PO SCH (06:37)
[2017-04-22] MEDS: FERROUS SO4 325 MG TABLET (FP) PO SCH ×3 (07:07→16:49)
[2017-04-22] MEDS ORDERED: PT OWN MED DRAWER 7, Y5N ONE (08:02)
[2017-04-22] MEDS: PRENATAL VITAMINS W/ FOLIC ACID TABLET (FP) PO SCH (09:36)
[2017-04-22] MEDS: MINERAL OIL/PETROLAT/WATER TOPICAL CREAM 113 GM JAR TP SCH ×2 (09:36→21:07)
[2017-04-22] MEDS: NICOTINE 21 MG/24 HOURS TOPICAL PATCH TD SCH (09:36)
[2017-04-22] MEDS: SILVER SULFADIAZINE 1% TOP CREAM 50 GM JAR TP SCH ×2 (09:37→21:07)
[2017-04-22] MEDS: NICOTINE POLACRILEX 4 MG GUM BUC PRN ×4 (13:20→21:07)
[2017-04-22] MEDS: hydrOXYzine PAMOATE 25 MG CAPSULE (FP) PO PRN (15:43)
[2017-04-22] MEDS: MAGNESIUM CITRATE 300 ML BOTTLE PO PRN (16:51)
[2017-04-22] MEDS: THIAMINE HCL 100 MG TABLET (FP) PO SCH (21:06)
[2017-04-22] MEDS: SUVOREXANT 10 MG TABLET PO SCH (21:06)
[2017-04-22] MEDS: DOCUSATE SODIUM 100 MG CAPSULE (FP) PO SCH (21:06)
[2017-04-22] MEDS: QUEtiapine FUMARATE 100 MG TABLET (FP) PO SCH (21:06)
[2017-04-23] MEDS ORDERED: METHADONE HCL 40 MG DISPERSABLE TABLET ONE (03:23)
[2017-04-23] MEDS ORDERED: METHADONE HCL 5 MG TABLET ONE (03:23)
[2017-04-23] MEDS: METHADONE 80 MG, METHADONE 5 MG PO SCH (06:24)
[2017-04-23] MEDS: FERROUS SO4 325 MG TABLET (FP) PO SCH ×3 (07:05→17:06)
[2017-04-23] MEDS ORDERED: PT OWN MED DRAWER 7, Y5N ONE ×2 (08:23→21:11)
[2017-04-23] MEDS: NICOTINE 21 MG/24 HOURS TOPICAL PATCH TD SCH (10:04)
[2017-04-23] MEDS: PRENATAL VITAMINS W/ FOLIC ACID TABLET (FP) PO SCH (10:04)
[2017-04-23] MEDS: SILVER SULFADIAZINE 1% TOP CREAM 50 GM JAR TP SCH ×2 (10:07→21:11)
[2017-04-23] MEDS: MINERAL OIL/PETROLAT/WATER TOPICAL CREAM 113 GM JAR TP SCH ×2 (10:07→21:11)
[2017-04-23] MEDS: NICOTINE POLACRILEX 4 MG GUM BUC PRN ×3 (10:07→21:11)
[2017-04-23] MEDS: hydrOXYzine PAMOATE 25 MG CAPSULE (FP) PO PRN (10:52)
--- NOTE | 2017-04-23 13:50 | PN ---
Psychiatric Progress Note Vital Signs: Vital Signs Period Temp Pulse Resp BP Sys/Florian Pulse Ox Last 24 Hr 98.0 F 59 18 144/81 Date of Session: 04/23/17 Chief Complaint:: Padilla extremely anxious. HPI: Alcohol,Opioid and Anxiolytic dependence comorbid with Schizoaffective disorder. ROS: Anemia. Current Medications: Active Medications Generic Name Dose Route Start Last Admin Trade Name Freq PRN Reason Stop Dose Admin Acetaminophen 650 mg 04/16/17 14:41 04/18/17 06:18 Tylenol - PO 650 mg Q4H PRN Administration PAIN Al Hydroxide/Mg Hydroxide 30 ml 04/16/17 14:41 Mylanta Oral Suspension - PO Q6H PRN DYSPEPSIA Amitriptyline HCl 25 mg 04/23/17 13:45 Elavil - PO TID PRN ANXIETY Colloidal Oatmeal 1 applic 04/21/17 11:32 04/21/17 12:02 Aveeno Soap - TP 1 bar DAILY PRN Administration HYGEINE Docusate Sodium 300 mg 04/17/17 22:00 04/22/17 21:06 Colace - PO 300 mg HS JAMIE Administration Eucalyptus/Menthol/Phenol/Sorbitol 1 each 04/16/17 14:41 Cepastat Lozenge - MM Q4H PRN SORE THROAT Ferrous Sulfate 325 mg 04/17/17 12:30 04/23/17 12:45 Feosol - PO 325 mg TIDCM JAMIE Administration Guaifenesin 10 ml 04/16/17 14:41 Robitussin Dm - PO Q6H PRN COUGH Hydroxyzine Pamoate 25 mg 04/16/17 14:41 04/23/17 10:52 Vistaril - PO 25 mg Q4H PRN Administration AGITATION Loperamide HCl 4 mg 04/16/17 14:41 Imodium - PO Q6H PRN DIARRHEA Magnesium Citrate 300 ml 04/16/17 14:41 04/22/17 16:51 Citroma - PO 300 ml Q48H PRN Administration CONSTIPATION Magnesium Hydroxide 30 ml 04/16/17 14:41 04/19/17 09:53 Milk Of Magnesia - PO 30 ml DAILY PRN Administration CONSTIPATION Methadone HCl 80 mg/ Methadone 85 mg 04/17/17 08:08 04/23/17 06:24 HCl 5 mg PO 04/24/17 08:07 85 mg DAILY@0600 JAMIE Administration Multi-Ingredient Lotion 1 applic 04/18/17 10:45 04/23/17 10:07 Eucerin (Small Jar) - TP Not Given BID JAMIE Nicotine 21 mg 04/19/17 17:00 04/23/17 10:04 Nicoderm Patch - TD 21 mg DAILY JAMIE Administration Nicotine Polacrilex 4 mg 04/19/17 15:50 04/23/17 10:07 Nicorette Gum - BUC 4 mg Q2H PRN Administration NICOTINE REPLACEMENT RX Multivit/Folic Acid/Iron 1 tab 04/17/17 10:00 04/23/17 10:04 Vitamins (Sjr) - PO 1 tab DAILY JAMIE Administration Pseudoephedrine/Triprolidine 1 combo 04/16/17 14:41 Actifed - PO TID PRN NASAL CONGESTION Quetiapine Fumarate 100 mg 04/16/17 21:15 04/22/17 21:06 Seroquel - PO 100 mg HS JAMIE Administration Silver Sulfadiazine 1 applic 04/16/17 15:00 04/23/17 10:07 Silvadene - TP Not Given BID JAMIE Thiamine HCl 100 mg 04/16/17 22:00 04/22/17 21:06 Vitamin B1 - PO 100 mg HS JAMIE Administration Current Side Effect: No Lab tests ordered: No Lab tests reviewed: Yes Provider note:: Elavil 26 mg po tid.Continue Seroquel 100 mg po hs. Total face to face time:: 30 Mental Status Exam - Mental Status Exam Alert and Oriented to: Time, Place, Person Cognitive Function: Grossly Intact Patient Appearance: Unkempt Mood: Anxious, Apprehensive, Irritable Affect: Mood Congruent, Labile Patient Behavior: Cooperative Speech Pattern: Clear Voice Loudness: Normal Thought Process: Goal Oriented Thought Disorder: Not Present Hallucinations: Denies Suicidal Ideation: Denies Insight/Judgement: Fair Sleep: Difficulty falling asleep Appetite: Fair Muscle strength/Tone: Normal Gait/Station: Normal Psychiatric Treatment Plan - Problem List (1) Nicotine dependence Current Visit: Yes (2) Schizoaffective disorder Current Visit: Yes (3) Opioid dependence Current Visit: Yes (4) Alcohol dependence Current Visit: Yes (5) Benzodiazepine dependence Current Visit: Yes (6) Microcytic anemia Current Visit: Yes (7) PTSD (post-traumatic stress disorder) Current Visit: Yes
--- NOTE | 2017-04-23 13:55 | PN ---
S Progress Note Note: c/o nasal congestion and r leg ulcer, x2 weeks has not been healing while here. no fever rigor or chills, no cough o/e nad, no SOB, tender over nasal sinuses Vital Signs - 24 hr 04/23/17 06:48 Temperature 98.0 F Pulse Rate 59 L Respiratory 18 Rate Blood Pressure 144/81 superficial right leg ulcer approximately 1 cm, granulating tissue noted, induration surrounding tissue, tender on palpation, no erythema or cellulitis noted. a/p 1. siniusitis 2. non healing leg ulcer start bactrim ds 1 po bid x10 days wet to dry dressing, flonase
[2017-04-23] MEDS: SULFAMETHOXAZOLE/TRIMETHOPRIM 800MG/160MG D.S. TABLET PO SCH ×2 (15:01→21:08)
[2017-04-23] MEDS: AMITRIPTYLINE HCL 25 MG TABLET (FP) PO PRN ×2 (15:01→21:13)
[2017-04-23] MEDS: QUEtiapine FUMARATE 100 MG TABLET (FP) PO SCH (21:08)
[2017-04-23] MEDS: THIAMINE HCL 100 MG TABLET (FP) PO SCH (21:08)
[2017-04-23] MEDS: DOCUSATE SODIUM 100 MG CAPSULE (FP) PO SCH (21:09)
[2017-04-23] MEDS: SUVOREXANT 10 MG TABLET PO SCH (21:09)
[2017-04-24] MEDS ORDERED: METHADONE HCL 5 MG TABLET ONE (05:51)
[2017-04-24] MEDS ORDERED: METHADONE HCL 40 MG DISPERSABLE TABLET ONE (05:52)
[2017-04-24] MEDS: METHADONE 80 MG, METHADONE 5 MG PO SCH (06:10)
[2017-04-24 06:56] VITALS: TEMP 98.3
[2017-04-24] MEDS: FERROUS SO4 325 MG TABLET (FP) PO SCH ×3 (07:00→17:13)
[2017-04-24] MEDS: AMITRIPTYLINE HCL 25 MG TABLET (FP) PO PRN ×3 (07:44→21:30)
[2017-04-24] MEDS: SULFAMETHOXAZOLE/TRIMETHOPRIM 800MG/160MG D.S. TABLET PO SCH ×2 (09:49→21:27)
[2017-04-24] MEDS: NICOTINE 21 MG/24 HOURS TOPICAL PATCH TD SCH (09:49)
[2017-04-24] MEDS: PRENATAL VITAMINS W/ FOLIC ACID TABLET (FP) PO SCH (09:49)
[2017-04-24] MEDS: SILVER SULFADIAZINE 1% TOP CREAM 50 GM JAR TP SCH ×2 (09:51→21:28)
[2017-04-24] MEDS: NICOTINE POLACRILEX 4 MG GUM BUC PRN ×3 (09:51→20:23)
[2017-04-24] MEDS: MINERAL OIL/PETROLAT/WATER TOPICAL CREAM 113 GM JAR TP SCH ×2 (09:52→21:28)
[2017-04-24] MEDS ORDERED: PT OWN MED DRAWER 7, Y5N ONE ×3 (10:38→15:50)
[2017-04-24] MEDS: ACETAMINOPHEN 325 MG TABLET (FP) PO PRN (15:27)
[2017-04-24] MEDS: THIAMINE HCL 100 MG TABLET (FP) PO SCH (21:27)
[2017-04-24] MEDS: QUEtiapine FUMARATE 100 MG TABLET (FP) PO SCH (21:27)
[2017-04-24] MEDS: DOCUSATE SODIUM 100 MG CAPSULE (FP) PO SCH (21:27)
[2017-04-24] MEDS: SUVOREXANT 10 MG TABLET PO SCH (21:29)
[2017-04-25] MEDS ORDERED: METHADONE 80 MG, METHADONE 5 MG PO SCH (06:00)
[2017-04-25] MEDS ORDERED: METHADONE HCL 5 MG TABLET ONE (06:25)
[2017-04-25] MEDS ORDERED: METHADONE HCL 40 MG DISPERSABLE TABLET ONE (06:25)
[2017-04-25 07:07] VITALS: BP 116/72; PULSE 66
[2017-04-25] MEDS: FERROUS SO4 325 MG TABLET (FP) PO SCH (07:23)
[2017-04-25] MEDS: NICOTINE POLACRILEX 4 MG GUM BUC PRN ×2 (07:42→10:02)
[2017-04-25] MEDS: ACETAMINOPHEN 325 MG TABLET (FP) PO PRN (09:01)
[2017-04-25] MEDS: AMITRIPTYLINE HCL 25 MG TABLET (FP) PO PRN (09:01)
[2017-04-25] MEDS: NICOTINE 21 MG/24 HOURS TOPICAL PATCH TD SCH (10:00)
[2017-04-25] MEDS: SULFAMETHOXAZOLE/TRIMETHOPRIM 800MG/160MG D.S. TABLET PO SCH (10:00)
[2017-04-25] MEDS: PRENATAL VITAMINS W/ FOLIC ACID TABLET (FP) PO SCH (10:00)
[2017-04-25] MEDS: MINERAL OIL/PETROLAT/WATER TOPICAL CREAM 113 GM JAR TP SCH (10:01)
[2017-04-25] MEDS: SILVER SULFADIAZINE 1% TOP CREAM 50 GM JAR TP SCH (10:03)
--- NOTE | 2017-04-25 10:19 | PN ---
Psychiatric Progress Note Vital Signs: Vital Signs Period Temp Pulse Resp BP Sys/Florian Pulse Ox Last 24 Hr 98.3 F 66 16-18 116/72 Date of Session: 04/25/17 Chief Complaint:: Discharge visit HPI: Patient addressed Opioid,Alcohol dependence comorbid with Schizoaffective disorder. ROS: H/O Sarcoidosis,BA. Current Medications: Active Medications Generic Name Dose Route Start Last Admin Trade Name Freq PRN Reason Stop Dose Admin Acetaminophen 650 mg 04/16/17 14:41 04/25/17 09:01 Tylenol - PO 650 mg Q4H PRN Administration PAIN Al Hydroxide/Mg Hydroxide 30 ml 04/16/17 14:41 Mylanta Oral Suspension - PO Q6H PRN DYSPEPSIA Amitriptyline HCl 25 mg 04/23/17 13:45 04/25/17 09:01 Elavil - PO 25 mg TID PRN Administration ANXIETY Colloidal Oatmeal 1 applic 04/21/17 11:32 04/21/17 12:02 Aveeno Soap - TP 1 bar DAILY PRN Administration HYGEINE Docusate Sodium 300 mg 04/17/17 22:00 04/24/17 21:27 Colace - PO 300 mg HS JAMIE Administration Eucalyptus/Menthol/Phenol/Sorbitol 1 each 04/16/17 14:41 Cepastat Lozenge - MM Q4H PRN SORE THROAT Ferrous Sulfate 325 mg 04/17/17 12:30 04/25/17 07:23 Feosol - PO 325 mg TIDCM JAMIE Administration Guaifenesin 10 ml 04/16/17 14:41 Robitussin Dm - PO Q6H PRN COUGH Hydroxyzine Pamoate 25 mg 04/16/17 14:41 04/23/17 10:52 Vistaril - PO 25 mg Q4H PRN Administration AGITATION Loperamide HCl 4 mg 04/16/17 14:41 Imodium - PO Q6H PRN DIARRHEA Magnesium Citrate 300 ml 04/16/17 14:41 04/22/17 16:51 Citroma - PO 300 ml Q48H PRN Administration CONSTIPATION Magnesium Hydroxide 30 ml 04/16/17 14:41 04/19/17 09:53 Milk Of Magnesia - PO 30 ml DAILY PRN Administration CONSTIPATION Methadone HCl 80 mg/ Methadone 85 mg 04/25/17 06:00 04/25/17 06:35 HCl 5 mg PO 05/02/17 05:59 85 mg DAILY@0600 JAMIE Administration Multi-Ingredient Lotion 1 applic 04/18/17 10:45 04/25/17 10:01 Eucerin (Small Jar) - TP 1 applic BID JAMIE Administration Nicotine 21 mg 04/19/17 17:00 04/25/17 10:00 Nicoderm Patch - TD 21 mg DAILY JAMIE Administration Nicotine Polacrilex 4 mg 04/19/17 15:50 04/25/17 10:02 Nicorette Gum - BUC 4 mg Q2H PRN Administration NICOTINE REPLACEMENT RX Multivit/Folic Acid/Iron 1 tab 04/17/17 10:00 04/25/17 10:00 Vitamins (Sjr) - PO 1 tab DAILY JAMIE Administration Pseudoephedrine/Triprolidine 1 combo 04/16/17 14:41 Actifed - PO TID PRN NASAL CONGESTION Quetiapine Fumarate 100 mg 04/16/17 21:15 04/24/17 21:27 Seroquel - PO 100 mg HS JAMIE Administration Silver Sulfadiazine 1 applic 04/16/17 15:00 04/25/17 10:03 Silvadene - TP Not Given BID JAMIE Thiamine HCl 100 mg 04/16/17 22:00 04/24/17 21:27 Vitamin B1 - PO 100 mg HS JAMIE Administration Trimethoprim/Sulfamethoxazole 1 each 04/23/17 14:00 04/25/17 10:00 Bactrim Ds - PO 1 each BID JAMIE Administration Current Side Effect: No Lab tests ordered: No Lab tests reviewed: Yes Provider note:: Patient completed this program today.She has met her treatment goals .Patient decided to continue to address her issues on outpatient basis at [facility] in the [place]. Patient reports finding that Seroquel 50 mg po hs and Trazodone 50 mg po hs helps to cope with mood instability,insomnia, anxiety.Scripts for 30 days supply provided. Patient identifies areas of difficulties,she focuses on insight gained in treatment including importance of changing attitude and ways she plans to utilize support,coping skills to maintain recovery. Patient is tsable for discharge today. Total face to face time:: 30 Mental Status Exam - Mental Status Exam Alert and Oriented to: Time, Place, Person Cognitive Function: Grossly Intact Patient Appearance: Well Groomed Mood: Euthymic Affect: Mood Congruent Patient Behavior: Cooperative Speech Pattern: Clear Voice Loudness: Normal Thought Process: Goal Oriented Thought Disorder: Being Controlled Hallucinations: Denies Suicidal Ideation: Denies Homicidal Ideation: Denies Insight/Judgement: Fair Sleep: Fair Appetite: Good Muscle strength/Tone: Normal Gait/Station: Normal
== END 2017-04-25 11:05 | disposition home or self-care (01) | DRG 895 ==
LOC: YASAS 11:11 → Y3E 14:32
PROVIDERS: ADMIT Psychiatry & Neurology Psychiatry; ATTEND Psychiatry & Neurology Psychiatry
PROC: HZ42ZZZ Group Counseling for Substance Abuse Treatment, Cognitive-Behavioral (ICD-10-PCS; principal; 2017-04-16)
DX: F11.20 Opioid dependence, uncomplicated (principal); F13.20 Sedative, hypnotic or anxiolytic dependence, uncomplicated; F10.20 Alcohol dependence, uncomplicated; F17.210 Nicotine dependence, cigarettes, uncomplicated; F25.9 Schizoaffective disorder, unspecified; F31.9 Bipolar disorder, unspecified; F43.10 Post-traumatic stress disorder, unspecified; D50.9 Iron deficiency anemia, unspecified; L98.499 Non-pressure chronic ulcer of skin of other sites with unspecified severity; R63.4 Abnormal weight loss; Z68.24 Body mass index [BMI] 24.0-24.9, adult; Z91.5 Personal history of self-harm
CPT/HCPCS: 36415; 80053; 81003; 85027; 86593; 93005; 93010